=== PATIENT | male | born 1955 | race African-American/Black ===

== ENCOUNTER 2018-03-19 01:41 | Emergency (ER) | payer BC ==
[~2018-03-19] VITALS: Ht 188 cm; Wt 117.9 kg
[2018-03-19 01:50] VITALS: BP 181/100
[2018-03-19] MEDS ORDERED: ACET-704 PO (01:57)
[2018-03-19] MEDS ORDERED: CLIN300C8 PO (01:57)
--- NOTE | 2018-03-19 01:57 | PHYS DOC ---
Adult General Chief Complaint Chief Complaint: DENTAL PROBLEM HPI HPI Patient is a 62-year-old male who presents with complaint of dental pain. Patient indicates that he was recently seen by his dentist who started him on amoxicillin. He states that the dentist told him that he had a dental infection and 3 teeth. Patient states that despite starting the amoxicillin he feels like the symptoms are worsening. He does complain of pain in his upper jaw. He denies any fever, nausea or vomiting. He states that pain is moderate and is worsened with both hot and cold. Review of Systems Review of Systems Constitutional: Denies fever or chills [] HENT: Positive dental pain[] Respiratory: Denies cough or shortness of breath [] Cardiovascular: Denies chest pain[] Physical Exam Physical Exam Constitutional: Well developed, well nourished, no acute distress, non-toxic appearance. [] HENT: Normocephalic, atraumatic, bilateral external ears normal, oropharynx moist. Dentition is poor with widespread dental caries [] Eyes: PERRLA, EOMI, conjunctiva normal, no discharge. [] Neck: Normal range of motion, no tenderness, supple, no stridor. [] Cardiovascular:Heart rate regular rhythm, no murmur [] Lungs & Thorax: Bilateral breath sounds clear to auscultation [] EKG EKG [] Radiology/Procedures Radiology/Procedures [] Course & Med Decision Making Course & Med Decision Making Pertinent Labs and Imaging studies reviewed. (See chart for details) [] Dragon Disclaimer Dragon Disclaimer This electronic medical record was generated, in whole or in part, using a voice recognition dictation system. Departure Departure Impression: Primary Impression: Dental caries Disposition: 01 HOME, SELF-CARE Condition: STABLE Patient Instructions: Dental Caries Additional Instructions: Take prescribed medication as directed and follow-up with dentist as scheduled. Scripts Acetaminophen With Codeine (TYLENOL WITH CODEINE #3 TABLET) 1 Each Tablet 1 TAB PO PRN Q6HRS PRN for PAIN, #12 TAB Prov: LESLIE ROSALES Jr. DO 03/19/18 Clindamycin Hcl (CLINDAMYCIN HCL) 300 Mg Capsule 300 MG PO QID, #40 CAP Prov: LESLIE ROSALES Jr. DO 03/19/18 LESLIE ROSALES Jr. DO Mar 19, 2018 01:57
== END 2018-03-19 02:10 | disposition home or self-care (01) ==
LOC: ER 01:41
DX: K02.9 Dental caries, unspecified (principal)
CPT/HCPCS: 99283

== ENCOUNTER 2018-06-04 05:39 | Emergency (ER) | payer BC ==
[~2018-06-04] VITALS: Ht 185.4 cm; Wt 117.9 kg
[~2018-06-04 05:39] MED LIST: ACET-704 PO; CLIN300C8 PO
[2018-06-04 05:55] VITALS: BP 137/82
[2018-06-04 06:26] LABS: BASO % 0 % (0-3); EOS % 0 % (0-3); HEMATOCRIT 44.5 % (39.0-53.0); HEMOGLOBIN 15.1 g/dL (13.0-17.5); LYMPH # 0.4 x10^3/uL (1.0-4.8); LYMPH % 8 % (24-48); MEAN CORPUSCULAR HEMOGLOBIN 29 pg (25-35); MEAN CORPUSCULAR HGB CONC 34 g/dL (31-37); MEAN CORPUSCULAR VOLUME 86 fL (79-100); MONO # 0.3 x10^3/uL (0.0-1.1); MONO % 7 % (0-9); NEUT # 4.5 x10^3uL (1.8-7.7); NEUT % 85 % (31-73); PLATELET COUNT 125 x10^3/uL (140-400); RED BLOOD COUNT 5.15 x10^6/uL (4.30-5.70); RED CELL DISTRIBUTION WIDTH 15.1 % (11.5-14.5); WHITE BLOOD COUNT 5.3 x10^3/uL (4.0-11.0)
[2018-06-04 06:36] LABS: BILIRUBIN,URINE NEGATIVE (NEG); CLARITY,URINE CLEAR; COLOR,URINE YELLOW; NITRITE,URINE NEGATIVE (NEG); PH,URINE 6.5; PROTEIN,URINE NEGATIVE (NEG-TRACE)
[2018-06-04 06:45] LABS: BACTERIA,URINE MANY /HPF (0-FEW)
--- NOTE | 2018-06-04 06:56 | PHYS DOC ---
Past Medical History Past Medical History: Arthritis, Diabetes-Type I, Hypertension Additional Past Surgical Histo: GI INTESTINAL SURGERY 1986 Additional Information: Denies smoking Alcohol Use: None Drug Use: None Adult General Chief Complaint Chief Complaint: FLU SYMPTOM HPI HPI Patient is a 63 year old male who presents with complaining of nausea and vomiting and cough and congestion for 4 days. Patient complaining of 3 episodes of vomiting per day with constant nausea that usually happen after cough. Patient complaining of nonproductive cough and chest soreness with sore throat and nasal congestion and headache. Patient complaining of subjective fever and chills and generalized myalgia. Patient denies abdominal pain during episodes of vomiting, diarrhea, sick contact. Review of Systems Review of Systems Constitutional: Reports fever and chills[] Eyes: Denies change in visual acuity, redness, or eye pain [] HENT: Reports nasal congestion and sore throat Respiratory: Coarse cough and shortness of breath Cardiovascular: No additional information not addressed in HPI [] GI: Denies abdominal pain, bloody stools or diarrhea , reports nausea and vomiting[] : Denies dysuria or hematuria [] Musculoskeletal: Denies back pain or joint pain [] Integument: Denies rash or skin lesions [] Neurologic: Reports headache, denies focal weakness or sensory changes [] Endocrine: Denies polyuria or polydipsia [] All other systems were reviewed and found to be within normal limits, except as documented in this note. Current Medications Current Medications Current Medications Medications (Trade) Dose Ordered Sig/[place] Start Time Stop Time Status Last Admin Dose Admin Acetaminophen (Tylenol) 1,000 mg 1X ONCE 06/04/18 07:00 06/04/18 07:01 DC 06/04/18 06:39 1,000 MG Albuterol/ Ipratropium (Duoneb) 3 ml 1X ONCE 06/04/18 07:00 06/04/18 07:01 DC 06/04/18 06:34 3 ML Ceftriaxone Sodium 1 gm/ Dextrose 50 ml @ 100 mls/hr Q24H 06/04/18 07:45 06/04/18 07:45 DC Ceftriaxone Sodium 50 ml @ 100 mls/hr 1X ONCE 06/04/18 07:45 06/04/18 08:14 06/04/18 07:49 100 MLS/HR Ondansetron HCl (Zofran) 4 mg 1X ONCE 06/04/18 07:00 06/04/18 07:01 DC 06/04/18 06:21 4 MG Sodium Chloride 1,000 ml @ 1,000 mls/hr Q1H 06/04/18 07:00 06/04/18 07:59 06/04/18 06:21 1,000 MLS/HR Allergies Allergies Allergies Coded Allergies Type Severity Reaction Last Updated Verified No Known Drug Allergies 03/19/18 No Physical Exam Physical Exam Constitutional: Well developed, well nourished, moderate distress, non-toxic appearance, febrile, temperature 100.9 [] HENT: Normocephalic, atraumatic, bilateral external ears normal, oropharynx dry , no oral exudates, nose normal. [] Eyes: PERRLA, EOMI, conjunctiva normal, no discharge. [] Neck: Normal range of motion, no tenderness, supple, no stridor. [] Cardiovascular: Tachycardia, no murmur [] Lungs & Thorax: Bilateral breath sounds clear to auscultation [] Abdomen: Bowel sounds normal, soft, no tenderness, no masses, no pulsatile masses. [] Skin: Warm, dry, no erythema, no rash. [] Back: No tenderness, no CVA tenderness. [] Extremities: No tenderness, no cyanosis, no clubbing, ROM intact, no edema. [] Neurologic: Alert and oriented X 3, normal motor function, normal sensory function, no focal deficits noted. [] Psychologic: Affect normal, judgement normal, mood normal. [] Current Patient Data Vital Signs Vital Signs Date Time Temp Pulse Resp B/P (MAP) Pulse Ox O2 Delivery O2 Flow Rate FiO2 06/04/18 06:36 96 Room Air 06/04/18 05:55 98.4 128 18 137/82 (100) 98.4 Lab Values Laboratory Tests Test 06/04/18 05:40 06/04/18 05:45 Urine Collection Type Unknown Urine Color Yellow Urine Clarity Clear Urine pH 6.5 Urine Specific Batson >=1.030 Urine Protein Negative mg/dL (NEG-TRACE) Urine Glucose (UA) >=1000 mg/dL (NEG) Urine Ketones (Stick) 15 mg/dL (NEG) Urine Blood Negative (NEG) Urine Nitrite Negative (NEG) Urine Bilirubin Negative (NEG) Urine Urobilinogen Dipstick 4.0 mg/dL (0.2 mg/dL) Urine Leukocyte Esterase Trace (NEG) Urine RBC 1-2 /HPF (0-2) Urine WBC 11-20 /HPF (0-4) Urine Bacteria Many /HPF (0-FEW) White Blood Count 5.3 x10^3/uL (4.0-11.0) Red Blood Count 5.15 x10^6/uL (4.30-5.70) Hemoglobin 15.1 g/dL (13.0-17.5) Hematocrit 44.5 % (39.0-53.0) Mean Corpuscular Volume 86 fL (79-100) Mean Corpuscular Hemoglobin 29 pg (25-35) Mean Corpuscular Hemoglobin Concent 34 g/dL (31-37) Red Cell Distribution Width 15.1 % (11.5-14.5) H Platelet Count 125 x10^3/uL (140-400) L Neutrophils (%) (Auto) 85 % (31-73) H Lymphocytes (%) (Auto) 8 % (24-48) L Monocytes (%) (Auto) 7 % (0-9) Eosinophils (%) (Auto) 0 % (0-3) Basophils (%) (Auto) 0 % (0-3) Neutrophils # (Auto) 4.5 x10^3uL (1.8-7.7) Lymphocytes # (Auto) 0.4 x10^3/uL (1.0-4.8) L Monocytes # (Auto) 0.3 x10^3/uL (0.0-1.1) Eosinophils # (Auto) 0.0 x10^3/uL (0.0-0.7) Basophils # (Auto) 0.0 x10^3/uL (0.0-0.2) Segmented Neutrophils % 60 % (35-66) Band Neutrophils % 24 % (0-9) H Lymphocytes % 9 % (24-48) L Monocytes % 5 % (0-10) Metamyelocytes % 2 % (0-0) H Toxic Vacuolation Present Platelet Estimate Decreased (ADEQUATE) Anisocytosis Slight Sodium Level 136 mmol/L (136-145) Potassium Level 3.8 mmol/L (3.5-5.1) Chloride Level 99 mmol/L (98-107) Carbon Dioxide Level 23 mmol/L (21-32) Anion Gap 14 (6-14) Blood Urea Nitrogen 21 mg/dL (8-26) Creatinine 1.1 mg/dL (0.7-1.3) Estimated GFR (Cockcroft-Gault) 81.8 BUN/Creatinine Ratio 19 (6-20) Glucose Level 331 mg/dL (70-99) H Lactic Acid Level 1.2 mmol/L (0.4-2.0) Calcium Level 9.8 mg/dL (8.5-10.1) Total Bilirubin 1.1 mg/dL (0.2-1.0) H Aspartate Amino Transferase (AST) 45 U/L (15-37) H Alanine Aminotransferase (ALT) 50 U/L (16-63) Alkaline Phosphatase 89 U/L (46-116) Total Protein 8.0 g/dL (6.4-8.2) Albumin 3.6 g/dL (3.4-5.0) Albumin/Globulin Ratio 0.8 (1.0-1.7) L Influenza Type A Antigen Negative (NEGATIVE) Influenza Type B Antigen Negative (NEGATIVE) Laboratory Tests 06/04/18 05:45 Laboratory Tests 06/04/18 05:45 EKG EKG [] Radiology/Procedures Radiology/Procedures [] Impressions: [facility] [address] [facility] [place], [place] [id number] IMAGING REPORT Signed PATIENT: LOR SINGH ACCOUNT: [id number] : 1955 LOCATION: ER AGE: 63 SEX: M EXAM STATUS: REG ER ORD. PHYSICIAN: ANDREA GENTILE MD REASON: cough and congestion PROCEDURE: CHEST PA & LATERAL CHEST PA LATERAL History: COUGH AND CONGESTION Comparison: None. Findings: The cardiomediastinal silhouette is normal. Pulmonary vasculature is normal. The lungs are clear. No pleural effusion or pneumothorax is seen. There is no acute bone abnormality. IMPRESSION: No acute cardiopulmonary process. Electronically signed by: Alphonso Abdalla MD (06/04/2018 7:02 AM) [facility] DICTATED and SIGNED BY: ALPHONSO ABDALLA MD DATE: 06/04/18 07 Course & Med Decision Making Course & Med Decision Making Pertinent Labs and Imaging studies reviewed. (See chart for details) Evaluation of patient in ER showed 63-year-old male patient with history of diabetes mellitus and complaining of nausea and vomiting and URI symptom for 4 days. Patient had temperature of 100.9 and tachycardia. Chest x-ray, flu test, lactic acid. WBC count was unremarkable patient had blood sugar of 331 and bandemia of 24%. UA showed UTI. Patient treated with IV fluid, Tylenol, Zofran, Rocephin and felt better. Patient tolerated oral intake. Plan discharge patient home with diagnose of flulike symptom and UTI and nausea and vomiting. Dragon Disclaimer Dragon Disclaimer This electronic medical record was generated, in whole or in part, using a voice recognition dictation system. Critical Care Time Critical care time was [] minutes exclusive of procedures. Departure Departure Impression: Primary Impression: Flu-like symptoms Additional Impressions: Urinary tract infection Fever Vomiting Bandemia Myalgia Hyperglycemia Uncontrolled diabetes mellitus Disposition: 01 HOME, SELF-CARE (@0800) Condition: IMPROVED Referrals: NO PCP (PCP) Patient Instructions: 1800 Calorie Diet for Diabetes Meal Planning, Hyperglycemia, Nausea and Vomiting, Upper Respiratory Infection, Adult, Urinary Tract Infection Additional Instructions: Drink plenty of liquids Follow-up with your primary care physician in 3-5 days Return to ER if not getting better Scripts Hydrocodone/Chlorphen P-Stirex (Tussionex Pennkinetic Susp) 115 Ml Debby.er.12h 5 ML PO BID for cough and congestion, #60 ML Prov: ANDREA GENTILE MD 06/04/18 Ondansetron Hcl (ZOFRAN) 4 Mg Tablet 4 MG PO PRN TID PRN for VOMITING, #15 nausea/vomiting Prov: ANDREA GENTILE MD 06/04/18 Sulfamethoxazole/Trimethoprim (BACTRIM DS TABLET) 1 Each Tablet 1 TAB PO BID for infection, #14 TAB Prov: ANDREA GENTILE MD 06/04/18 Problem Qualifiers ANDREA GENTILE MD Jun 04, 2018 06:56
[2018-06-04] MEDS ORDERED: ACETAMINOPHEN 500 MG TABLET PO ONE (07:00)
[2018-06-04] MEDS ORDERED: IPRATRPIUM/ALBUTEROL 0.5/2.5MG 3 ML NEBU. NEB ONE (07:00)
[2018-06-04] MEDS ORDERED: ONDANSETRON PF 4 MG/2 ML VIAL. IM ONE (07:00)
[2018-06-04] MEDS ORDERED: IV NORMAL SALINE 1000ML BAG 1,000 ML IV SCH (07:00)
--- NOTE | 2018-06-04 07:06 | RAD ---
CHEST PA LATERAL History: COUGH AND CONGESTION Comparison: None. Findings: The cardiomediastinal silhouette is normal. Pulmonary vasculature is normal. The lungs are clear. No pleural effusion or pneumothorax is seen. There is no acute bone abnormality. IMPRESSION: No acute cardiopulmonary process. Electronically signed by: Alphonso Giang MD (06/04/2018 7:02 AM) [facility]
[2018-06-04 07:13] LABS: CALCIUM 9.8 mg/dL (8.5-10.1); CREATININE 1.1 mg/dL (0.7-1.3); GFR 81.8; POTASSIUM 3.8 mmol/L (3.5-5.1)
[2018-06-04 07:18] LABS: ALBUMIN 3.6 g/dL (3.4-5.0); ALBUMIN/GLOBULIN RATIO 0.8 (1.0-1.7); TOTAL BILIRUBIN 1.1 mg/dL (0.2-1.0)
[2018-06-04 07:22] LABS: INFLUENZA A PATIENT NEGATIVE (NEGATIVE); INFLUENZA B PATIENT NEGATIVE (NEGATIVE)
[2018-06-04 07:30] LABS: % BANDS 24 % (0-9); % LYMPHS 9 % (24-48); % METAS 2 % (0-0); % MONOS 5 % (0-10); % SEGS 60 % (35-66); ANISOCYTOSIS SLIGHT; PLT ESTIMATE DECREASED (ADEQUATE); TOXIC VACUOLATION PRESENT
[2018-06-04] MEDS ORDERED: SULF1TAB24 PO (07:46)
[2018-06-04] MEDS ORDERED: ONDA4TAB7 PO (07:46)
[2018-06-04] MEDS ORDERED: HYDR-971 PO (07:46)
[2018-06-04] MEDS ORDERED: HYDR115S2 PO (07:52)
== END 2018-06-04 08:30 | disposition home or self-care (01) ==
LOC: ER 05:39
DX: N39.0 Urinary tract infection, site not specified (principal); E10.65 Type 1 diabetes mellitus with hyperglycemia; D72.825 Bandemia; R11.2 Nausea with vomiting, unspecified; R09.81 Nasal congestion; R19.7 Diarrhea, unspecified; J02.9 Acute pharyngitis, unspecified; R06.02 Shortness of breath; R51 Headache; M79.18 Myalgia, other site; I10 Essential (primary) hypertension; R00.0 Tachycardia, unspecified; M19.90 Unspecified osteoarthritis, unspecified site
CPT/HCPCS: 36415; 71046; 80053; 81001; 82962; 83605; 85007; 85025; 87040; 87804; 94640; 96361; 96365; 96372; 99285; J0690; J2405; J7030; J7620; 87086